=== PATIENT | male | born 1965 | race Caucasian/White ===

== ENCOUNTER 2023-04-22 09:55 | Outpatient (CLI) | payer OTHER | END 2023-04-22 09:56 | disposition home or self-care (01) | LOC: BICMRI 09:55 | PROVIDERS: ATTEND Physician Assistant Medical | DX: S46.001A Unspecified injury of muscle(s) and tendon(s) of the rotator cuff of right shoulder, initial encounter (principal); M19.011 Primary osteoarthritis, right shoulder; R60.0 Localized edema ==

== ENCOUNTER 2024-02-10 07:18 | Outpatient (CLI) | payer OTHER | END 2024-02-10 07:19 | disposition home or self-care (01) | LOC: ULT 07:18 | DX: R74.01 Elevation of levels of liver transaminase levels (principal); R93.2 Abnormal findings on diagnostic imaging of liver and biliary tract | CPT/HCPCS: 76705 ==